=== PATIENT | male | born 2000 | race Caucasian/White ===

== ENCOUNTER 2020-11-25 18:58 | Emergency (ER) | payer OTHER ==
[2020-11-25 19:34] LABS: BILIRUBIN,URINE NEGATIVE (NEGATIVE); GLUCOSE, URINE (UA) NEGATIVE (NEGATIVE); KETONES,URINE (UA) NEGATIVE (NEGATIVE); LEUKOCYTE ESTERASE, URINE NEGATIVE (NEGATIVE); NITRITE,URINE NEGATIVE (NEGATIVE); OCCULT BLOOD,URINE NEGATIVE (NEGATIVE); PROTEIN,URINE NEGATIVE (NEGATIVE); UROBILINOGEN,URINE 0.2 (NORMAL) E.U./dL (NORMAL)
[2020-11-25 19:36] LABS: CLARITY,URINE CLEAR (CLEAR)
--- NOTE | 2020-11-25 20:03 | ED Physician Documentation ---
PD HPI ABD PAIN - Stated complaint Stated Complaint: LOWER STOMACH PX - Chief complaint Chief Complaint: UTI PD PAST MEDICAL HISTORY - Past Medical History Past Medical History: No - Past Surgical History Past Surgical History: No - Present Medications Home Medications: Ambulatory Orders Medication Instructions Recorded Confirmed No Known Home Medications 11/25/20 11/25/20 - Allergies Allergies/Adverse Reactions: Allergies Allergy/AdvReac Type Severity Reaction Status Date / Time No Known Drug Allergies Allergy Verified 11/25/20 19:13 - Social History Does the pt smoke?: No Smoking Status: Never smoker Does the pt drink ETOH?: No Does the pt have substance abuse?: No - Immunizations Immunizations are current?: Yes Results - Vitals Vitals: Vital Signs - 24 hr 11/25/20 11/25/20 19:10 19:53 Temperature 37.1 C 37.1 C Heart Rate 72 72 Respiratory 16 16 Rate Blood Pressure 148/66 H 148/99 H O2 Saturation 98 98 Oxygen O2 Source Room air - Labs Labs: Laboratory Tests 11/25/20 19:22 Urine Color YELLOW Urine Clarity CLEAR Urine pH 7.0 Ur Specific [place] 1.010 Urine Protein NEGATIVE Urine Glucose (UA) NEGATIVE Urine Ketones NEGATIVE Urine Occult Blood NEGATIVE Urine Nitrite NEGATIVE Urine Bilirubin NEGATIVE Urine Urobilinogen 0.2 (NORMAL) Ur Leukocyte Esterase NEGATIVE Ur Microscopic Review NOT INDICATED Urine Culture Comments NOT INDICATED
[2020-11-25] MEDS ORDERED: LIDOCAINE 1% 2 ML VIAL MC ONE ×3 (20:20→20:28)
[2020-11-25] MEDS ORDERED: AZITHROMYCIN 250 MG TABLET PO STA (20:20)
[2020-11-25] MEDS ORDERED: cefTRIAXone 500 MG VIAL IM STA (20:20)
--- NOTE | 2020-11-25 20:23 | ED Physician Documentation ---
PD HPI MALE - Stated complaint Stated Complaint: LOWER STOMACH PX - Chief complaint Chief Complaint: UTI - History obtained from History obtained from: Patient - History of Present Illness Timing - onset: Yesterday Timing - details: Gradual onset Pain level now: 2 Associated symptoms: Dysuria, Urinary frequency, Testiclar pain. No: Discharge, Genital sore / lesion, Scrotal swelling PD HPI MALE CONTRIB FACTORS: Sexually active Similar symptoms before: Has not had sx before Recently seen: Not recently seen - Additional information Additional information: c/o left testicular pain, urinary frequency, mild dysuria since yesterday, with the latter two symptoms worsening today (testicular pain has been decreasing). denies injury, denies h/o similar symptoms ,denies penile discharge. He is sexually active Review of Systems Constitutional: denies: Fever GI: reports: Reviewed and negative : reports: Dysuria, Frequency, Testicular pain. denies: Hematuria, Discharge Skin: denies: Rash PD PAST MEDICAL HISTORY - Past Medical History Past Medical History: No - Past Surgical History Past Surgical History: No - Present Medications Home Medications: Ambulatory Orders Medication Instructions Recorded Confirmed No Known Home Medications 11/25/20 11/25/20 - Allergies Allergies/Adverse Reactions: Allergies Allergy/AdvReac Type Severity Reaction Status Date / Time No Known Drug Allergies Allergy Verified 11/25/20 19:13 - Social History Does the pt smoke?: No Smoking Status: Never smoker Does the pt drink ETOH?: No Does the pt have substance abuse?: No - Immunizations Immunizations are current?: Yes PD ED PE NORMAL - Vitals Vital signs reviewed: Yes - General General: Alert and oriented X 3, No acute distress, Well developed/nourished - Abdomen Abdomen: Soft, Non tender PD ED PE EXPANDED - Male Male : Normal Exam, Circumcised, Testes descended pelon, Normal lie/cremastaric. No: Skin lesions, Discharge, Tenderness Results - Vitals Vitals: Vital Signs - 24 hr 11/25/20 11/25/20 11/25/20 19:10 19:53 20:55 Temperature 37.1 C 37.1 C 36.9 C Heart Rate 72 72 58 L Respiratory 16 16 16 Rate Blood Pressure 148/66 H 148/99 H 131/77 H O2 Saturation 98 98 98 Oxygen O2 Source Room air - Labs Labs: Laboratory Tests 11/25/20 19:22 Urine Color YELLOW Urine Clarity CLEAR Urine pH 7.0 Ur Specific [place] 1.010 Urine Protein NEGATIVE Urine Glucose (UA) NEGATIVE Urine Ketones NEGATIVE Urine Occult Blood NEGATIVE Urine Nitrite NEGATIVE Urine Bilirubin NEGATIVE Urine Urobilinogen 0.2 (NORMAL) Ur Leukocyte Esterase NEGATIVE Ur Microscopic Review NOT INDICATED Urine Culture Comments NOT INDICATED PD MEDICAL DECISION MAKING - ED course Complexity details: considered differential, d/w patient ED course: patient's chief concerns are urinary frequency and mild dysuria; he says he has also had left testicular pain but this is nearly resolved by the time of this H+P, and unremarkable exam (nontender testicle, no swelling, no erythema). Torsion considered but unlikely given mild degree of pain, improving symptoms, and unremarkable exam. I discussed this was a potential concern, though unlikely, and emphasized the need to return if worse in any way. He is primarily concerned about STD and it is reasonable to cover for GC/chlamydia given his normal UA in setting of urethritis-type symptoms. Given 500mg IM rocephin , 1000mg zithromax (one-time doses for both) Departure - Departure Disposition: 01 Home, Self Care Clinical Impression: Urethritis Condition: Good Instructions: ED Urethritis Infec Vs Inflam Male Follow-Up: YUE Ruiz [Provider Group] Discharge Date/Time: 11/25/20 20:57
[2020-11-25] MEDS ORDERED: cefTRIAXone 250 MG VIAL IM STA ×2 (20:28)
[2020-11-25 20:57] VITALS: BP 131/77
[2020-11-26 03:27] LABS: NEISSERIA GONORRHOEAE DNA NEGATIVE (NEGATIVE)
[2020-11-26 03:33] LABS: CHLAMYDIA TRACHOMATIS DNA POSITIVE (NEGATIVE)
== END 2020-11-25 20:57 | disposition home or self-care (01) ==
LOC: ED 18:58
DX: N34.2 Other urethritis (principal)
CPT/HCPCS: 81003; 87491; 87591; 96372; 99283; A9270; 81001; 87086; 87661

== ENCOUNTER 2020-12-18 20:52 | Emergency (ER) | payer OTHER ==
[2020-12-18 20:57] VITALS: BP 138/77
--- NOTE | 2020-12-18 21:40 | ED Physician Documentation ---
History of Present Illness - Stated complaint Stated Complaint: MALE - Chief complaint Chief Complaint: General - History obtained from History obtained from: Patient - Additonal information Additional information: 20-year-old man with recent diagnosis of chlamydia infection, status post one- time dose of Rocephin and azithromycin presents with persistent urethral pain since discharge. pain improves with urination. no increased frequency or hematuria. Denies fevers, back pain, abdominal pain. does note some soreness to L testicle but no swelling, redness. mild aching soreness. Review of Systems Ten Systems: 10 systems reviewed and negative Constitutional: denies: Fever, Chills GI: denies: Abdominal Pain, Nausea, Vomiting : reports: Testicular pain (discomfort to L testicle. denies "pain"). denies: Dysuria, Frequency PD PAST MEDICAL HISTORY - Past Surgical History Past Surgical History: No - Present Medications Home Medications: Ambulatory Orders Medication Instructions Recorded Confirmed Doxycycline Hyclate 100 mg PO BID 7 Days #14 tab 12/18/20 - Allergies Allergies/Adverse Reactions: Allergies Allergy/AdvReac Type Severity Reaction Status Date / Time No Known Drug Allergies Allergy Verified 11/25/20 19:13 - Social History Does the pt smoke?: No Smoking Status: Never smoker Does the pt drink ETOH?: No Does the pt have substance abuse?: No - Immunizations Immunizations are current?: Yes PD ED PE NORMAL - Vitals Vital signs reviewed: Yes - General General: Alert and oriented X 3, No acute distress, Well developed/nourished - HEENT HEENT: Atraumatic, PERRL, EOMI - Abdomen Abdomen: Non tender, Non distended, Other (Suprapubic discomfort to palpation) - Male Male : Pulley Man present (ISA christine), Other (Normal external male genitalia. Bilateral cremaster reflex. Testicles nontender to palpation. No hernias. No discharge.) - Back Back: No CVA TTP - Derm Derm: Normal color, Warm and dry Results - Vitals Vitals: Vital Signs - 24 hr 12/18/20 20:55 Temperature 36.9 C Heart Rate 68 Respiratory 16 Rate Blood Pressure 138/77 H O2 Saturation 100 Oxygen O2 Source Room air - Labs Labs: Laboratory Tests 12/18/20 12/18/20 21:42 21:42 Urine Color YELLOW Urine Clarity CLEAR Urine pH 6.5 Ur Specific [place] 1.015 Urine Protein NEGATIVE Urine Glucose (UA) NEGATIVE Urine Ketones NEGATIVE Urine Occult Blood NEGATIVE Urine Nitrite NEGATIVE Urine Bilirubin NEGATIVE Urine Urobilinogen 0.2 (NORMAL) Ur Leukocyte Esterase NEGATIVE Urine RBC None Seen Urine WBC 0-3 Ur Squamous Epith Cells NONE SEEN Urine Bacteria None Seen Urine Culture Comments NOT INDICATED Chlam trachomat DNA PCR NEGATIVE N.gonorrhoeae DNA (PCR) NEGATIVE T. vaginalis (PCR) TNP PD MEDICAL DECISION MAKING - ED course ED course: 20-year-old man presents with concerns about possible recurrent chlamydia infection. Doxycycline antibiotics prescribed and repeat STI testing sent. Return precautions given. Patient will follow up with [facility]. Departure - Departure Disposition: Home, Self Care Clinical Impression: Chlamydia, Urethritis Condition: Good Instructions: ED STD Male Treated Prescriptions: Doxycycline Hyclate 100 mg PO BID 7 Days #14 tab Comments: You are seen in the emergency department for chlamydia infection. I am prescribing an additional course of antibiotics that you should take to completion. Please follow-up with your primary doctor. Return to the emergency department if you experience fevers, any new or worsening symptoms or have other concerns. Discharge Date/Time: 12/18/20 22:04
[2020-12-18] MEDS ORDERED: DOXYCYCLINE 100 MG TABLET PO STA (21:41)
[2020-12-18 21:51] LABS: BILIRUBIN,URINE NEGATIVE (NEGATIVE); GLUCOSE, URINE (UA) NEGATIVE (NEGATIVE); KETONES,URINE (UA) NEGATIVE (NEGATIVE); LEUKOCYTE ESTERASE, URINE NEGATIVE (NEGATIVE); NITRITE,URINE NEGATIVE (NEGATIVE); OCCULT BLOOD,URINE NEGATIVE (NEGATIVE); PH,URINE 6.5 PH (5.0-7.5); PROTEIN,URINE NEGATIVE (NEGATIVE); UROBILINOGEN,URINE 0.2 (NORMAL) E.U./dL (NORMAL)
[2020-12-18 21:58] LABS: CLARITY,URINE CLEAR (CLEAR); WBC,URINE 0-3 /HPF (0-3)
[2020-12-18 21:59] LABS: BACTERIA,URINE None Seen /HPF (None Seen); RBC,URINE None Seen /HPF (0-5); SQUAMOUS EPITHELIAL CELL,UR NONE SEEN (<= Few)
[2020-12-19 00:28] LABS: CHLAMYDIA TRACHOMATIS DNA NEGATIVE (NEGATIVE); NEISSERIA GONORRHOEAE DNA NEGATIVE (NEGATIVE)
== END 2020-12-18 22:04 | disposition home or self-care (01) ==
LOC: ED 20:52
DX: A56.01 Chlamydial cystitis and urethritis (principal)
CPT/HCPCS: 81001; 87491; 87591; 99283; 99284; A9270; 87086; 87661

== ENCOUNTER 2021-05-13 23:15 | Emergency (ER) | payer OTHER ==
[2021-05-13 23:28] VITALS: BP 142/78
[2021-05-13 23:36] LABS: BILIRUBIN,URINE NEGATIVE (NEGATIVE); GLUCOSE, URINE (UA) NEGATIVE (NEGATIVE); KETONES,URINE (UA) NEGATIVE (NEGATIVE); LEUKOCYTE ESTERASE, URINE NEGATIVE (NEGATIVE); NITRITE,URINE NEGATIVE (NEGATIVE); OCCULT BLOOD,URINE NEGATIVE (NEGATIVE); PROTEIN,URINE NEGATIVE (NEGATIVE); UROBILINOGEN,URINE 0.2 (NORMAL) E.U./dL (NORMAL)
[2021-05-13 23:39] LABS: CLARITY,URINE CLEAR (CLEAR)
[2021-05-13] MEDS ORDERED: cefTRIAXone 500 MG VIAL IM STA (23:47)
[2021-05-13] MEDS ORDERED: DOXYCYCLINE 100 MG TABLET PO STA (23:47)
--- OUTSIDE RECORDS SUMMARY | 2021-05-13 23:48 | EXTERNAL MEDICAL SUMMARY RPT | Continuity of Care Document ---
:2000 Author Organization [facility] Address [address] [place] [address] Phone Allergies No information. Encounters No information. Medications No information. Problems date description facility [id number] Unspecified abdominal pain [facility] [id number] Nausea [facility] Results No information.
--- NOTE | 2021-05-13 23:56 | ED Physician Documentation ---
PD HPI MALE - Stated complaint Stated Complaint: MALE - Chief complaint Chief Complaint: General - History obtained from History obtained from: Patient - Additional information Additional information: Patient presenting for evaluation of urinary frequency x1 day with associated achiness to the left testicle. He reports a history of chlamydia with similar symptoms and is concerned for the same. Denies anything that makes his symptoms better or worse. Denies known exposure. Denies dysuria, penile discharge, penile lesions, testicular Swelling. Review of Systems Constitutional: denies: Fever Nose: denies: Rhinorrhea / runny nose Cardiac: denies: Chest pain / pressure Respiratory: denies: Dyspnea GI: denies: Abdominal Pain, Nausea, Vomiting : reports: Frequency. denies: Dysuria, Testicular pain Skin: denies: Rash Musculoskeletal: denies: Back pain Neurologic: denies: Headache PD PAST MEDICAL HISTORY - Past Medical History Past Medical History: Yes Cardiovascular: None Respiratory: None Neuro: None Endocrine/Autoimmune: None GI: None : Other HEENT: None Psych: None Musculoskeletal: None Derm: None - Past Surgical History Past Surgical History: No - Present Medications Home Medications: Ambulatory Orders Medication Instructions Recorded Confirmed Doxycycline Hyclate 100 mg PO BID 7 Days #14 tab 05/13/21 - Allergies Allergies/Adverse Reactions: Allergies Allergy/AdvReac Type Severity Reaction Status Date / Time No Known Drug Allergies Allergy Verified 05/13/21 23:28 - Social History Does the pt smoke?: No Smoking Status: Never smoker Does the pt drink ETOH?: No Does the pt have substance abuse?: No - Immunizations Immunizations are current?: Yes - POLST Patient has POLST: No PD ED PE NORMAL - General General: Alert and oriented X 3, No acute distress, Well developed/nourished - HEENT HEENT: Atraumatic, Moist mucous membranes - Cardiac Cardiac: RRR - Respiratory Respiratory: No respiratory distress - Abdomen Abdomen: Normal bowel sounds, Soft, Non tender, Non distended - Male Male : [employer] 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 (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 Stanley), Other (Appearing penis with no discharge or lesions, no testicular tenderness or swelling on exam, no normal testicular lie,) - Back Back: No: No CVA TTP - Derm Derm: Normal color - Psych Psych: Normal mood, Normal affect Results - Vitals Vitals: Vital Signs - 24 hr 05/13/21 05/13/21 05/14/21 23:25 23:37 00:16 Temperature 36.5 C Heart Rate 67 60 70 Respiratory 16 14 14 Rate Blood Pressure 142/78 H O2 Saturation 100 Oxygen O2 Source Room air - Labs Labs: Laboratory Tests 05/13/21 05/13/21 23:20 23:20 Urine Color YELLOW Urine Clarity CLEAR Urine pH 6.0 Ur Specific [place] 1.020 Urine Protein NEGATIVE Urine Glucose (UA) NEGATIVE Urine Ketones NEGATIVE Urine Occult Blood NEGATIVE Urine Nitrite NEGATIVE Urine Bilirubin NEGATIVE Urine Urobilinogen 0.2 (NORMAL) Ur Leukocyte Esterase NEGATIVE Ur Microscopic Review NOT INDICATED Urine Culture Comments NOT INDICATED Chlam trachomat DNA PCR NEGATIVE N.gonorrhoeae DNA (PCR) NEGATIVE T. vaginalis (PCR) TNP PD MEDICAL DECISION MAKING - ED course ED course: Patient presenting with urinary frequencyWhich is similar to his presentation with previous episode of chlamydia. On exam has no findings to suggest testicular torsion, epididymitis, abscess.He is agreeable to prophylactic treatment. Counseled on safe sex practices andAware of return precautions particularly pain or swelling to the penis or testicles. Departure - Departure Disposition: 01 Home, Self Care Clinical Impression: Concern about STD in male without diagnosis Condition: Stable Instructions: ED STD Male Treated Prescriptions: Doxycycline Hyclate 100 mg PO BID 7 Days #14 tab Comments: You were seen today for a possible sexually transmitted infection. You were started on treatment. A prescription for the antibiotic doxycycline was sent to the [facility] in [place]. Please pick this up tomorrow and complete the antibiotic course.Please return to the emergency department if you have any worsening symptoms particularly testicle pain. Discharge Date/Time: 05/14/21 00:16
[2021-05-14 03:52] LABS: CHLAMYDIA TRACHOMATIS DNA NEGATIVE (NEGATIVE); NEISSERIA GONORRHOEAE DNA NEGATIVE (NEGATIVE)
== END 2021-05-14 00:16 | disposition home or self-care (01) ==
LOC: ED 23:15
DX: R35.0 Frequency of micturition (principal); N50.812 Left testicular pain
CPT/HCPCS: 81003; 87491; 87591; 96372; 99281; 99283; A9270; 81001; 87086; 87661

== ENCOUNTER 2022-01-29 10:23 | Outpatient (CLI) | payer OTHER ==
--- NOTE | 2022-01-29 12:53 | XRAY Report ---
PROCEDURE: Abdomen Acute INDICATIONS: ABD PAIN TECHNIQUE: One view chest and two views of the abdomen were acquired. COMPARISON: None FINDINGS: Surgical changes and devices: None. Chest: Lungs are clear. Heart size is normal. No pleural effusions. No pneumoperitoneum. Abdomen: Bowel gas pattern is normal. No suspicious calcifications. Visualized solid organ contour s appear normal. Bones: No suspicious bony lesions. IMPRESSION: No acute plain film abnormality. Reviewed by: Kirby Mendez on 01/29/2022 12:51 PM [facility] Approved by: Kirby Mendez on 01/29/2022 12:51 PM [facility] Station ID: [id number]
== END 2022-01-29 10:24 | disposition home or self-care (01) ==
LOC: DI 10:23
PROVIDERS: ATTEND Internal Medicine Gastroenterology
DX: R10.9 Unspecified abdominal pain (principal); R11.0 Nausea